=== PATIENT | male | born 1965 | race Caucasian/White ===

== ENCOUNTER 2017-10-22 22:34 | Observation (INO) | payer SELFPAY ==
[~2017-10-22] VITALS: Ht 177.8 cm; Wt 65.0 kg
[~2017-10-22 22:34] MED LIST: AZELASTINE HCL6 ML RIGHTEYE; CEPH500 PO; CLIN300 PO; Cleocin HCl150 MG PO; HYDACE5 PO; LEVFLO500 PO; NEOPOLHCSU RIGHTEAR; NYST100TO TOP; OXYACE5T PO; RXHYDACE PO; SILSUL1TC TOP; SULTRIDS PO; Valium5 MG PO; Zofran4 MG PO
[2017-10-22 23:02] LABS: BASOPHILS ABSOLUTE AUTO 0.03 K/mm3 (0.00-0.23); BASOPHILS PERCENT AUTO 0 % (0-2); EOSINOPHILS ABSOLUTE AUTO 0.33 K/mm3 (0.00-0.68); EOSINOPHILS PERCENT AUTO 3 % (0-6); Hemoglobin 14.2 g/dL (13.5-17.5); IMMATURE GRAN ABSOLUTE AUTO 0.02 K/mm3 (0.00-0.10); IMMATURE GRAN PERCENT AUTO 0 % (0-1); LYMPHOCYTES ABSOLUTE AUTO 2.93 K/mm3 (0.84-5.20); LYMPHOCYTES PERCENT AUTO 27 % (21-46); MONOCYTES ABSOLUTE AUTO 0.55 K/mm3 (0.16-1.47); MONOCYTES PERCENT AUTO 5 % (4-13); Mean Corpuscular HGB Conc 34.6 g/dL (31.5-36.5); Mean Corpuscular Volume 92 fL (80-100); Mean Platelet Volume 9.3 fL (9.1-12.4); NEUTROPHILS ABSOLUTE AUTO 7.19 K/mm3 (1.96-9.15); NEUTROPHILS PERCENT AUTO 65 % (41-73); Platelet Count 203 K/mm3 (150-400); RDW Coefficient Variation 13.4 % (11.7-14.2); RDW Standard Deviation 45.5 fL (35.1-46.3); Red Blood Cell Count 4.44 M/mm3 (4.30-5.90); White Blood Cell Count 11.05 K/mm3 (4.00-11.30)
[2017-10-22 23:14] LABS: Alanine Aminotransfer (ALT/SGP 49 U/L (12-78); Albumin, Blood 3.9 g/dL (3.4-5.0); Albumin/Globulin Ratio 1.1 (0.8-1.8); Alk Phos 67 U/L (50-136); Anion Gap 7 mmol/L (6-16); Aspartate Aminotrans (AST/SGOT 25 U/L (12-37); Bilirubin, Total 0.3 mg/dL (0.1-1.0); Blood Urea Nitrogen 23 mg/dL (8-24); Bun/Creatinine Ratio 32.6 (12.0-20.0); CO2, Blood 28 mmol/L (21-32); Calcium, Blood 8.7 mg/dL (8.5-10.1); Chloride, Blood 104 mmol/L (98-108); Creatinine, Blood 0.71 mg/dL (0.60-1.20); Globulin, Blood 3.7 g/dL (2.2-4.0); Glomerular Filtration Rate >60 (60-); Glucose, Blood 116 mg/dL (70-99); Potassium, Blood 3.7 mmol/L (3.5-5.5); Sodium, Blood 139 mmol/L (136-145); Total Protein, Blood 7.6 g/dL (6.4-8.2)
[2017-10-23 05:16] LABS: BASOPHILS PERCENT AUTO 0 % (0-2); EOSINOPHILS PERCENT AUTO 0 % (0-6); Hematocrit 38.7 % (37.0-53.0); IMMATURE GRAN ABSOLUTE AUTO 0.02 K/mm3 (0.00-0.10); IMMATURE GRAN PERCENT AUTO 0 % (0-1); LYMPHOCYTES ABSOLUTE AUTO 0.61 K/mm3 (0.84-5.20); LYMPHOCYTES PERCENT AUTO 6 % (21-46); MONOCYTES PERCENT AUTO 3 % (4-13); Mean Corpuscular HGB 31.6 pg (26.0-34.0); Mean Corpuscular HGB Conc 33.6 g/dL (31.5-36.5); Mean Corpuscular Volume 94 fL (80-100); Mean Platelet Volume 9.6 fL (9.1-12.4); NEUTROPHILS ABSOLUTE AUTO 8.77 K/mm3 (1.96-9.15); NEUTROPHILS PERCENT AUTO 90 % (41-73); Platelet Count 163 K/mm3 (150-400); RDW Coefficient Variation 13.5 % (11.7-14.2); RDW Standard Deviation 46.5 fL (35.1-46.3); Red Blood Cell Count 4.12 M/mm3 (4.30-5.90)
[2017-10-23 05:32] LABS: U Amphetamine Screen Not Detected; U Barbituate Screen Not Detected; U Benzodiazapine Screen Not Detected; U Buprenorphine Screen Not Detected; U Cannabinoids Screen DETECTED; U Cocaine Screen Not Detected; U Methadone Screen Not Detected; U Methamphetamine Screen Not Detected; U Opiates Screen DETECTED; U Oxycodone Screen Not Detected; U Phencyclidine Screen Not Detected; U Propoxyphene Screen Not Detected
[2017-10-23 06:02] LABS: Albumin, Blood 3.4 g/dL (3.4-5.0); Anion Gap 9 mmol/L (6-16); Blood Urea Nitrogen 16 mg/dL (8-24); Bun/Creatinine Ratio 26.6 (12.0-20.0); CO2, Blood 26 mmol/L (21-32); Calcium, Blood 8.2 mg/dL (8.5-10.1); Chloride, Blood 105 mmol/L (98-108); Glomerular Filtration Rate >60 (60-); Glucose, Blood 128 mg/dL (70-99); Phosphorus, Blood 2.2 mg/dL (2.5-4.9); Sodium, Blood 140 mmol/L (136-145)
== END 2017-10-24 12:47 | disposition home or self-care (01) ==
LOC: ER 22:34 → MEDS 22:35 → ENPENDDIS 10-24 11:00 → MEDS 10-24 12:47
PROVIDERS: Family Medicine; Physician Assistant
DX: R11.2 Nausea with vomiting, unspecified (principal); F12.90 Cannabis use, unspecified, uncomplicated; Z88.0 Allergy status to penicillin; Z79.899 Other long term (current) drug therapy; Z87.891 Personal history of nicotine dependence; Z87.19 Personal history of other diseases of the digestive system; Z90.49 Acquired absence of other specified parts of digestive tract
CPT/HCPCS: 36415; 80053; 80069; 83690; 85025; 93005; 93010; 96361; 96374; 96375; 96376; 99285; C9113; G0378; J1170; J1630; J2405; J2550; J7030

== ENCOUNTER 2017-11-06 08:08 | Emergency (ER) | payer SELFPAY ==
[~2017-11-06] VITALS: Ht 177.8 cm; Wt 63.5 kg
[2017-11-06 09:15] LABS: BASOPHILS ABSOLUTE AUTO 0.04 K/mm3 (0.00-0.23); BASOPHILS PERCENT AUTO 0 % (0-2); EOSINOPHILS ABSOLUTE AUTO 0.11 K/mm3 (0.00-0.68); EOSINOPHILS PERCENT AUTO 1 % (0-6); Hemoglobin 14.2 g/dL (13.5-17.5); IMMATURE GRAN ABSOLUTE AUTO 0.05 K/mm3 (0.00-0.10); IMMATURE GRAN PERCENT AUTO 0 % (0-1); LYMPHOCYTES ABSOLUTE AUTO 1.62 K/mm3 (0.84-5.20); LYMPHOCYTES PERCENT AUTO 13 % (21-46); MONOCYTES ABSOLUTE AUTO 0.79 K/mm3 (0.16-1.47); MONOCYTES PERCENT AUTO 6 % (4-13); Mean Corpuscular HGB 31.3 pg (26.0-34.0); Mean Corpuscular HGB Conc 33.8 g/dL (31.5-36.5); Mean Corpuscular Volume 93 fL (80-100); NEUTROPHILS PERCENT AUTO 79 % (41-73); Platelet Count 182 K/mm3 (150-400); RDW Coefficient Variation 13.3 % (11.7-14.2); RDW Standard Deviation 45.1 fL (35.1-46.3); Red Blood Cell Count 4.54 M/mm3 (4.30-5.90); White Blood Cell Count 12.31 K/mm3 (4.00-11.30)
[2017-11-06 09:25] LABS: Alanine Aminotransfer (ALT/SGP 44 U/L (12-78); Albumin, Blood 3.9 g/dL (3.4-5.0); Alk Phos 72 U/L (50-136); Anion Gap 8 mmol/L (6-16); Aspartate Aminotrans (AST/SGOT 30 U/L (12-37); Bilirubin, Total 0.4 mg/dL (0.1-1.0); Blood Urea Nitrogen 16 mg/dL (8-24); Bun/Creatinine Ratio 25.5 (12.0-20.0); CO2, Blood 28 mmol/L (21-32); Calcium, Blood 9.1 mg/dL (8.5-10.1); Chloride, Blood 105 mmol/L (98-108); Creatinine, Blood 0.63 mg/dL (0.60-1.20); Glomerular Filtration Rate >60 (60-); Glucose, Blood 116 mg/dL (70-99); Potassium, Blood 3.5 mmol/L (3.5-5.5); Sodium, Blood 141 mmol/L (136-145); Total Protein, Blood 7.9 g/dL (6.4-8.2)
[2017-11-06] MEDS ORDERED: PHENERGAN25 MG PR (10:15)
[2017-11-06] MEDS ORDERED: Zofran4 MG PO (10:15)
== END 2017-11-06 10:26 | disposition home or self-care (01) ==
LOC: ER 08:08
PROVIDERS: Emergency Medicine
DX: G43.A0 Cyclical vomiting, in migraine, not intractable (principal); Z88.0 Allergy status to penicillin; Z87.891 Personal history of nicotine dependence
CPT/HCPCS: 36415; 80053; 83690; 85025; 96361; 96374; 96375; 99283; 99284; J1200; J1630; J2405; J2550; J7030

== ENCOUNTER 2021-03-26 08:46 | Emergency (ER) | payer SELFPAY ==
[~2021-03-26] VITALS: Ht 172.7 cm; Wt 72.6 kg
[~2021-03-26 08:46] MED LIST changes: +PHENERGAN25 MG PR
[2021-03-26 09:16] LABS: BASOPHILS ABSOLUTE AUTO 0.06 K/mm3 (0.00-0.23); BASOPHILS PERCENT AUTO 1 % (0-2); EOSINOPHILS ABSOLUTE AUTO 0.38 K/mm3 (0.00-0.68); EOSINOPHILS PERCENT AUTO 4 % (0-6); Hematocrit 42.1 % (37.0-53.0); Hemoglobin 14.1 g/dL (13.5-17.5); IMMATURE GRAN ABSOLUTE AUTO 0.01 K/mm3 (0.00-0.10); IMMATURE GRAN PERCENT AUTO 0 % (0-1); LYMPHOCYTES ABSOLUTE AUTO 1.98 K/mm3 (0.84-5.20); LYMPHOCYTES PERCENT AUTO 20 % (21-46); MONOCYTES ABSOLUTE AUTO 0.82 K/mm3 (0.16-1.47); MONOCYTES PERCENT AUTO 8 % (4-13); Mean Corpuscular HGB 31.5 pg (26.0-34.0); Mean Corpuscular HGB Conc 33.5 g/dL (31.5-36.5); Mean Corpuscular Volume 94 fL (80-100); Mean Platelet Volume 8.8 fL (9.1-12.4); NEUTROPHILS ABSOLUTE AUTO 6.65 K/mm3 (1.96-9.15); NEUTROPHILS PERCENT AUTO 67 % (41-73); Platelet Count 216 K/mm3 (150-400); RDW Coefficient Variation 12.7 % (11.7-14.2); Red Blood Cell Count 4.47 M/mm3 (4.30-5.90)
[2021-03-26 09:42] LABS: Alanine Aminotransfer (ALT/SGP 45 U/L (12-78); Albumin, Blood 3.8 g/dL (3.4-5.0); Alk Phos 83 U/L (50-136); Anion Gap 5 mmol/L (6-16); Aspartate Aminotrans (AST/SGOT 27 U/L (12-37); Bilirubin, Total 0.3 mg/dL (0.1-1.0); Blood Urea Nitrogen 19 mg/dL (8-24); Bun/Creatinine Ratio 24.7 (12.0-20.0); CO2, Blood 29 mmol/L (21-32); Chloride, Blood 103 mmol/L (98-108); Creatinine, Blood 0.77 mg/dL (0.60-1.20); Globulin, Blood 3.8 g/dL (2.2-4.0); Glomerular Filtration Rate >60 (60-); Glucose, Blood 121 mg/dL (70-99); Potassium, Blood 3.7 mmol/L (3.5-5.5); Sodium, Blood 137 mmol/L (136-145); Total Protein, Blood 7.6 g/dL (6.4-8.2)
[2021-03-26] MEDS ORDERED: ONDA4ODT MM (12:46)
== END 2021-03-26 13:05 | disposition home or self-care (01) ==
LOC: ER 08:46
PROVIDERS: Emergency Medicine
DX: R10.10 Upper abdominal pain, unspecified (principal); R11.2 Nausea with vomiting, unspecified; Z88.0 Allergy status to penicillin
CPT/HCPCS: 36415; 74177; 80053; 83690; 84484; 85025; 93005; 93010; 96361; 96374-59; 96375; 96376; 99284-25; J1170; J1630; J2405; J7030; Q9967

== ENCOUNTER 2022-10-17 01:17 | Observation (INO) | payer OTHER ==
[~2022-10-17] VITALS: Ht 177.8 cm; Wt 63.8 kg
[~2022-10-17 01:17] MED LIST changes: +ONDA4ODT MM
[2022-10-17 01:56] LABS: BASOPHILS ABSOLUTE AUTO 0.03 K/mm3 (0.00-0.23); BASOPHILS PERCENT AUTO 0 % (0-2); EOSINOPHILS ABSOLUTE AUTO 0.01 K/mm3 (0.00-0.68); EOSINOPHILS PERCENT AUTO 0 % (0-6); Hematocrit 42.8 % (37.0-53.0); IMMATURE GRAN ABSOLUTE AUTO 0.04 K/mm3 (0.00-0.10); IMMATURE GRAN PERCENT AUTO 0 % (0-1); LYMPHOCYTES ABSOLUTE AUTO 0.76 K/mm3 (0.84-5.20); LYMPHOCYTES PERCENT AUTO 6 % (21-46); MONOCYTES PERCENT AUTO 5 % (4-13); Mean Corpuscular Volume 91 fL (80-100); Mean Platelet Volume 8.7 fL (9.1-12.4); NEUTROPHILS ABSOLUTE AUTO 10.42 K/mm3 (1.96-9.15); NEUTROPHILS PERCENT AUTO 88 % (41-73); Platelet Count 195 K/mm3 (150-400); RDW Coefficient Variation 12.7 % (11.7-14.2); RDW Standard Deviation 42.3 fL (35.1-46.3); Red Blood Cell Count 4.69 M/mm3 (4.30-5.90); White Blood Cell Count 11.86 K/mm3 (4.00-11.30)
[2022-10-17 02:14] LABS: Albumin/Globulin Ratio 1.1 (0.8-1.8); Bilirubin, Total 0.4 mg/dL (0.1-1.0); Bun/Creatinine Ratio 29.5 (12.0-20.0); Calcium, Blood 9.4 mg/dL (8.5-10.1); Creatinine, Blood 0.68 mg/dL (0.60-1.20); Globulin, Blood 3.8 g/dL (2.2-4.0); Potassium, Blood 3.7 mmol/L (3.5-5.5); Total Protein, Blood 7.8 g/dL (6.4-8.2)
[2022-10-17 05:20] LABS: Source, Urine Clean Catch
[2022-10-17 05:36] LABS: Appearance, Urine Clear (Clear); Bilirubin, Urine Neg (Neg); Blood, Urine 1+ (Neg); Color, Urine Yellow (P-Yellow); Glucose Qualitative, Urine Neg (Neg); Ketones, Urine Neg (Neg); Leukocyte Esterase, Urine Neg (Neg); Nitrite, Urine Neg (Neg); Protein, Urine 2+ (Neg); Specific Gravity, Urine 1.015 (1.003-1.022); Urobilinogen, Urine NORM (Normal); pH, Urine 6.5 (5.0-8.0)
[2022-10-17 05:58] LABS: Bacteria Not Seen /hpf; Squamous Epithelial Cells Few /hpf (Few); White Blood Cells, Urine Not Seen /hpf (0-5)
[2022-10-17 06:54] LABS: Hematocrit 38.8 % (37.0-53.0); Hemoglobin 13.7 g/dL (13.5-17.5)
--- NOTE | 2022-10-17 13:42 | NUR ---
10/17/22 1342 [address] Kathleen HISTORY, CHART, MEDICATIONS AND ALLERGIES REVIEWED BEFORE START OF PROCEDURE. PATIENT CONFIRMS NPO STATUS AND AGREES WITH SCHEDULED PROCEDURE. 3-LEAD EKG REVIEWED WITH PHYSICIAN PRIOR TO START OF PROCEDURE. MONITOR INTACT WITH CONTINUOUS PULSE OXIMETRY,CAPNOGRAPHY, 3-LEAD EKG, INTERMITTENT BP. SUPPLEMENTAL O2 TO BE TITRATED THROUGHOUT PROCEDURE TO MAINTAIN O2 SATURATION ABOVE 90%. PATIENT DETERMINED TO BE ASA APPROPRIATE FOR PROPOFOL SEDATION PRIOR TO START OF PROCEDURE BY DR. MONTOYA.
[2022-10-17 14:39] LABS: Hematocrit 39.3 % (37.0-53.0); Hemoglobin 13.7 g/dL (13.5-17.5)
--- NOTE | 2022-10-17 18:06 | NUR ---
END OF SHIFT: COMPLETELY ALERT AND ORIENTED, NO SIGN OF PULMONARY DISTRESS. CARDIAC, PATINET SINCE RETURN FROM DAY SURGERY HAS BEEN SLIGHTLY BRADICARDIC WITH HR BEING IN THE UPPER 40'S - 70. PATIENT IS CURRENLTY 62 AND SINUS. OCCASSIONALLY WILL DIP INTO THE 50'S. BLOOD PRESSURE HAS BEEN NORMOTENSIVE. EGD SHOWED MARTHA MARR TEAR IN HEALING PROCESS. AND OTHER FINDINGS WELL PLEASE SEE REPORT. PATIENT WAS D/C'D FROM GI WITH RECOMMENDATIONS. PROVIDER AWARE. SLIGHT NAUSEA AT TIMES, WILL CONTIUE TO MONITOR UNTIL SHIFT CHANGE. NO CHEST PAIN PRESSURE OF SOB AT REST.
[2022-10-17 22:37] LABS: Hematocrit 37.2 % (37.0-53.0); Hemoglobin 13.1 g/dL (13.5-17.5)
[2022-10-18 03:33] LABS: BASOPHILS ABSOLUTE AUTO 0.01 K/mm3 (0.00-0.23); BASOPHILS PERCENT AUTO 0 % (0-2); EOSINOPHILS ABSOLUTE AUTO 0.07 K/mm3 (0.00-0.68); EOSINOPHILS PERCENT AUTO 1 % (0-6); Hemoglobin 13.2 g/dL (13.5-17.5); IMMATURE GRAN ABSOLUTE AUTO 0.01 K/mm3 (0.00-0.10); IMMATURE GRAN PERCENT AUTO 0 % (0-1); LYMPHOCYTES ABSOLUTE AUTO 1.39 K/mm3 (0.84-5.20); LYMPHOCYTES PERCENT AUTO 19 % (21-46); MONOCYTES ABSOLUTE AUTO 0.67 K/mm3 (0.16-1.47); MONOCYTES PERCENT AUTO 9 % (4-13); Mean Corpuscular HGB 31.7 pg (26.0-34.0); Mean Corpuscular HGB Conc 34.7 g/dL (31.5-36.5); Mean Corpuscular Volume 91 fL (80-100); Mean Platelet Volume 8.7 fL (9.1-12.4); NEUTROPHILS ABSOLUTE AUTO 5.35 K/mm3 (1.96-9.15); NEUTROPHILS PERCENT AUTO 72 % (41-73); Platelet Count 137 K/mm3 (150-400); RDW Standard Deviation 43.1 fL (35.1-46.3); Red Blood Cell Count 4.17 M/mm3 (4.30-5.90)
[2022-10-18 03:52] LABS: Albumin, Blood 3.2 g/dL (3.4-5.0); Bilirubin, Total 0.7 mg/dL (0.1-1.0); Calcium, Blood 8.3 mg/dL (8.5-10.1); Creatinine, Blood 0.71 mg/dL (0.60-1.20); Globulin, Blood 3.3 g/dL (2.2-4.0); Potassium, Blood 3.4 mmol/L (3.5-5.5); Total Protein, Blood 6.5 g/dL (6.4-8.2)
--- NOTE | 2022-10-18 06:09 | NUR ---
SHIFT SUMMARY PATIENT ALERT AND ORIENTED, VERY PLEASANT AND COOPERATIVE WITH CARE. TELE READING SB-SR T/O NIGHT, ALL OTHER VSS, REMAINS ON RA WITH O2 SAT >90%. PATIENT INDEPENDENT IN THE ROOM, AMBULATING INTO BATHROOM WITH ADEQUATE OUTPUT. PATIENT DENIES NAUSEA, ANY HEMATEMESIS OR HEMATCHEZIA DURING THE NIGHT. NO OTHER SIGNIFICANT CHANGES, WILL REPORT TO DAY SHIFT RN.
--- NOTE | 2022-10-18 18:17 | NUR ---
SHIFT SUMMARY PT HAS BEEN ATTEMPTING TO REST IN ROOM. AT INITIAL ASSESSMENT THE PT WAS SITTING UP IN A CHAIR, IN GOOD SPIRITS, AND DENIED ANY C/O PAIN OR DISCOMFORT. APPROXIMATELY ONE HOUR LATER THIS RN WAS CALLED TO THE ROOM. THE PT WAS FOUND TO BE NAUSEOUS, RETCHING, AND IN SIGNIFICANT AMOUNTS OF PAIN. THIS RN ADMINISTERED ONDANSETRON PER EMAR AND ATTEMPTED TO PROVIDE NON-PHARMACOLOGICAL PAIN RELIEF MEASURES. ONE HOUR LATER THE PT'S NAUSEA HAD NOT LESSENED AND THEY WERE STILL OCCASIONALLY RETCHING WITH THE SAME LEVEL OF PAIN. THIS RN CALLED THE PROVIDER WHO THEN CAME TO ASSESS THE PT IN PERSON. NEW ORDERS WERE GIVEN. ANTI-EMETICS AND PAIN MEDICATION WAS GIVEN FREQUENTLY ALLOWED THROUGHOUT THE DAY. PT WAS ABLE TO GAIN PERIODS OF REST FOLLOWING MEDICATION ADMINISTRATION. BLOOD PRESSURE WAS MEASURED BEING HIGH (SBP 180'S) DURING THE PERIOD OF HIGHEST LEVEL OF PAIN BUT WAS NORMAL AT ALL OTHER TIMES. PT WAS UNABLE TO TOLERATE PO INTAKE, ICE CHIPS AND FLUIDS WERE ATTEMPTED.
--- NOTE | 2022-10-19 05:51 | NUR ---
SHIFT SUMMARY PT ALERT AND ORIENTED X 4. NO ACUTE CHANGES T/O SHIFT. PT IND IN ROOM. HR STABLE. BP STABLE. NO CP OR PRESSURE REPORTED. PT REPORTS PAIN TO BE 1/10 IN ABD T/O SHIFT. CALL LIGHT WITHIN REACH. WILL CONT TO MONITOR UNTIL REPORT GIVEN TO DAYSHIFT RN.
[2022-10-19 06:05] LABS: BASOPHILS ABSOLUTE AUTO 0.03 K/mm3 (0.00-0.23); BASOPHILS PERCENT AUTO 0 % (0-2); EOSINOPHILS ABSOLUTE AUTO 0.03 K/mm3 (0.00-0.68); EOSINOPHILS PERCENT AUTO 0 % (0-6); Hematocrit 41.8 % (37.0-53.0); Hemoglobin 14.4 g/dL (13.5-17.5); IMMATURE GRAN ABSOLUTE AUTO 0.02 K/mm3 (0.00-0.10); IMMATURE GRAN PERCENT AUTO 0 % (0-1); LYMPHOCYTES ABSOLUTE AUTO 1.41 K/mm3 (0.84-5.20); LYMPHOCYTES PERCENT AUTO 18 % (21-46); MONOCYTES ABSOLUTE AUTO 0.67 K/mm3 (0.16-1.47); MONOCYTES PERCENT AUTO 9 % (4-13); Mean Corpuscular HGB 31.6 pg (26.0-34.0); Mean Corpuscular HGB Conc 34.4 g/dL (31.5-36.5); Mean Corpuscular Volume 92 fL (80-100); Mean Platelet Volume 8.9 fL (9.1-12.4); NEUTROPHILS ABSOLUTE AUTO 5.71 K/mm3 (1.96-9.15); NEUTROPHILS PERCENT AUTO 73 % (41-73); Platelet Count 143 K/mm3 (150-400); RDW Coefficient Variation 12.9 % (11.7-14.2); Red Blood Cell Count 4.56 M/mm3 (4.30-5.90); White Blood Cell Count 7.87 K/mm3 (4.00-11.30)
[2022-10-19 06:22] LABS: Bun/Creatinine Ratio 20.2 (12.0-20.0); Calcium, Blood 8.5 mg/dL (8.5-10.1); Creatinine, Blood 0.79 mg/dL (0.60-1.20); Potassium, Blood 3.5 mmol/L (3.5-5.5)
--- NOTE | 2022-10-19 08:49 | NUR ---
This morning Steve reports that he feels really good, and hopes that he can go home. He has tolerated clear liquids throughout the night, and says that at this time he has no pain and no nausea/vomiting. He requested some hot chocolate for breakfast.
[2022-10-19] MEDS ORDERED: PANT40 PO (13:24)
[2022-10-19] MEDS ORDERED: Carafate1 GM/10 ML PO (13:28)
[2022-10-20] MEDS ORDERED: Norco 5-325 Ta1 EACH PO (18:44)
== END 2022-10-19 13:47 | disposition home or self-care (01) ==
LOC: ER 01:17 → PCU 01:18
PROVIDERS: Internal Medicine Gastroenterology; Student in an Organized Health Care Education/Training Program; ADMIT Internal Medicine
PROC: 0DJ08ZZ Inspection of Upper Intestinal Tract, Via Natural or Artificial Opening Endoscopic (ICD-10-PCS; principal; 2022-10-17 13:30)
DX: K22.6 Gastro-esophageal laceration-hemorrhage syndrome (principal); K29.01 Acute gastritis with bleeding; K29.81 Duodenitis with bleeding; Q27.30 Arteriovenous malformation, site unspecified; K44.9 Diaphragmatic hernia without obstruction or gangrene; F10.11 Alcohol abuse, in remission; Z87.891 Personal history of nicotine dependence; B18.2 Chronic viral hepatitis C
CPT/HCPCS: 36415; 74177; 80048; 80053; 81001; 82150; 82271; 83690; 85014; 85018; 85025; 86850; 86900; 86901; 90686; 96361; 96365-59; 96375; 96376; 99285-25; A9270; C9113; G0008; G0378; J2270; J2354; J2405; J2550; J2704; J3010; J7030; J7120; Q9967

== ENCOUNTER 2025-02-03 06:28 | Day surgery (SDC) | payer OTHER ==
[~2025-02-03] VITALS: Ht 177.8 cm; Wt 60.1 kg
[~2025-02-03 06:28] MED LIST changes: +Carafate1 GM/10 ML PO; +Norco 5-325 Ta1 EACH PO; +PANT40 PO
[2025-02-03] MEDS ORDERED: Lactated Ringer's 1,000 ML IV ONE ×2 (07:33→07:41)
[2025-02-03] MEDS ORDERED: propofoL 50 ML IV ONE (07:33)
--- NOTE | 2025-02-03 08:09 | NUR ---
02/03/25 0809 ANASTACIA PORTILLO LOOSE UPPER TOOTH PREOP BASELINE. RDS
[2025-02-03 08:53] VITALS: BP 142/74
== END 2025-02-03 09:00 | disposition home or self-care (01) ==
LOC: ORSCSDS 06:28
PROVIDERS: Surgery
PROC: 0DBM8ZX Excision of Descending Colon, Via Natural or Artificial Opening Endoscopic, Diagnostic (ICD-10-PCS; principal; 2025-02-03 08:00)
DX: Z12.11 Encounter for screening for malignant neoplasm of colon (principal); Z80.0 Family history of malignant neoplasm of digestive organs; D12.4 Benign neoplasm of descending colon; K57.30 Diverticulosis of large intestine without perforation or abscess without bleeding; K64.8 Other hemorrhoids; B19.20 Unspecified viral hepatitis C without hepatic coma; Z87.891 Personal history of nicotine dependence
CPT/HCPCS: 88305; J2704; J7120

== ENCOUNTER 2025-05-26 00:43 | Emergency (ER) | payer OTHER ==
[~2025-05-26] VITALS: Ht 157.5 cm; Wt 61.2 kg
[2025-05-26] MEDS ORDERED: RX Prepack 6 Tabs Oxycodone 5mg UD ONE (02:55)
[2025-05-26] MEDS ORDERED: Robaxin750 MG PO (02:56)
[2025-05-26 03:31] VITALS: BP 139/89
== END 2025-05-26 03:23 | disposition home or self-care (01) ==
LOC: ER 00:43
DX: S82.491A Other fracture of shaft of right fibula, initial encounter for closed fracture (principal); Z88.0 Allergy status to penicillin; Z88.8 Allergy status to other drugs, medicaments and biological substances; Z90.49 Acquired absence of other specified parts of digestive tract; Z87.891 Personal history of nicotine dependence; X50.1XXA Overexertion from prolonged static or awkward postures, initial encounter
CPT/HCPCS: 73610; A9270

== ENCOUNTER 2025-08-20 23:00 | Emergency (ER) | payer OTHER ==
[~2025-08-20] VITALS: Ht 177.8 cm; Wt 61.2 kg
[~2025-08-20 23:00] MED LIST changes: +Robaxin750 MG PO
[2025-08-20] MEDS ORDERED: Ondansetron HCl 2 MG / ML 2ML Vial IV ONE (23:20)
[2025-08-20 23:36] LABS: BASOPHILS ABSOLUTE AUTO 0.02 K/mm3 (0.00-0.23); BASOPHILS PERCENT AUTO 0 % (0-2); EOSINOPHILS ABSOLUTE AUTO 0.00 K/mm3 (0.00-0.68); EOSINOPHILS PERCENT AUTO 0 % (0-6); Hematocrit 43.3 % (37.0-53.0); Hemoglobin 15.3 g/dL (13.5-17.5); IMMATURE GRAN ABSOLUTE AUTO 0.02 K/mm3 (0.00-0.10); IMMATURE GRAN PERCENT AUTO 0 % (0-1); LYMPHOCYTES ABSOLUTE AUTO 0.54 K/mm3 (0.84-5.20); LYMPHOCYTES PERCENT AUTO 5 % (21-46); MONOCYTES ABSOLUTE AUTO 0.40 K/mm3 (0.16-1.47); MONOCYTES PERCENT AUTO 4 % (4-13); Mean Corpuscular HGB Conc 35.3 g/dL (31.5-36.5); Mean Corpuscular Volume 91 fL (80-100); NEUTROPHILS ABSOLUTE AUTO 9.24 K/mm3 (1.96-9.15); NEUTROPHILS PERCENT AUTO 90 % (41-73); NRBC ABSOLUTE 0.00 K/mm3 (0.00-0.02); NRBC Auto 0.0 /100 WBC (0.0-0.2); Platelet Count 210 K/mm3 (150-400); RDW Coefficient Variation 12.4 % (11.7-14.2); RDW Standard Deviation 41.1 fL (35.1-46.3)
[2025-08-20 23:56] LABS: Alanine Aminotransfer (ALT/SGP 54.0 U/L (12-78); Albumin, Blood 4.2 g/dL (3.4-5.0); Albumin/Globulin Ratio 1.1 (0.8-1.8); Anion Gap 12.0 mmol/L (3-11); Aspartate Aminotrans (AST/SGOT 30.0 U/L (12-37); Bilirubin, Total 0.8 mg/dL (0.1-1.0); Blood Urea Nitrogen 24.0 mg/dL (8-24); CO2, Blood 25.0 mmol/L (21-32); Calcium, Blood 9.2 mg/dL (8.5-10.1); Chloride, Blood 103.0 mmol/L (98-108); Creatinine, Blood 0.78 mg/dL (0.60-1.20); Globulin, Blood 3.7 g/dL (2.2-4.0); Glucose, Blood 239.0 mg/dL (70-99); Potassium, Blood 3.5 mmol/L (3.5-5.5); Sodium, Blood 136.0 mmol/L (136-145); Total Protein, Blood 7.9 g/dL (6.4-8.2)
[2025-08-21] MEDS ORDERED: DiphenhydrAMINE HCl 50 MG/ML 1ML Vial IV ONE (01:15)
[2025-08-21] MEDS ORDERED: NS 1,000 ML IV SCH (01:15)
[2025-08-21] MEDS ORDERED: Prochlorperazine Edisylate 10 mg Vial IV ONE (01:15)
[2025-08-21] MEDS ORDERED: Metoclopramide HCl 5MG / ML 2ML Vial IV ONE (02:15)
[2025-08-21] MEDS ORDERED: METO5A PO (02:16)
[2025-08-21 02:45] VITALS: BP 152/83
== END 2025-08-21 02:46 | disposition home or self-care (01) ==
LOC: ER 23:00
PROVIDERS: Student in an Organized Health Care Education/Training Program
DX: K52.9 Noninfective gastroenteritis and colitis, unspecified (principal); E86.0 Dehydration; Z88.0 Allergy status to penicillin; Z88.8 Allergy status to other drugs, medicaments and biological substances; Z87.891 Personal history of nicotine dependence; Z59.89 Other problems related to housing and economic circumstances
CPT/HCPCS: 71046; 74177; 80053; 83690; 83880; 84484; 85025; 93005; 93010; 96374; 96375; 99284-25; J0780; J1200; J2405; J2765; J7030; Q9967